=== PATIENT | female | born 1945 | race American Indian/Alaskan Native ===

== ENCOUNTER 2017-10-06 16:01 | Emergency (ER) | payer BC, MEDICARE ==
[2017-10-06 16:01] VITALS: BMI 29.0
--- NOTE | 2017-10-06 16:24 | ED PDOC ---
Arrival/HPI - General Chief Complaint: Upper Extremity Problem/Injury Time Seen by Provider: 10/06/17 16:19 Historian: Patient EM Caveat: Acuity of Condition - History of Present Illness Narrative History of Present Illness (Text): 10/06/17 16:20 Pt is a 72 yr old female who presents to the ED for right arm injury while shopping at [employer] s/p slip and fall on wet surface one hour earlier. Pt and spouse describe landing on her right forearm but denies head injury, LOC, CARTER, nausea, vomiting, or change in vision. Describes pain as an ache that is better with rest and worse on active movement. No other complaints at this time. Time/Duration: Prior to Arrival Symptom Onset: Sudden Symptom Course: Improving Quality: Aching Severity Level: 3 Activities at Onset: Light Context: Other (shopping) Past Medical History - Provider Review Nursing Documentation Reviewed: Yes - Travel History Have you recently traveled outside [place] w/in the past 3 mons?: No - Infectious Disease Hx of Infectious Diseases: None - Reproductive Menopause: Yes - Cardiac Hx Hypertension: Yes - Endocrine/Metabolic Hx Hypothyroidism: Yes - Psychiatric Hx Substance Use: No - Surgical History Other/Comment: leg surgery 2000 - Anesthesia Hx Anesthesia: Yes - Suicidal Assessment Feels Threatened In Home Enviroment: No Family/Social History - Physician Review Nursing Documentation Reviewed: Yes Family/Social History: Unknown Family HX Smoking Status: Never Smoked Hx Alcohol Use: No Hx Substance Use: No Allergies/Home Meds Allergies/Adverse Reactions: Allergies No Known Allergies Allergy (Verified 09/30/15 13:00) Home Medications: Home Meds Medication Instructions Recorded Confirmed Losartan Potassium and 100 mg PO DAILY 08/25/13 09/30/15 Hydrochlorothiazide 25 Review of Systems - Physician Review All systems were reviewed & negative as marked: Yes - Review of Systems Systems not reviewed;Unavailable: Acuity of Condition Constitutional: Normal Eyes: Normal. absent: Vision Changes, Eye Pain ENT: Normal. absent: Epistaxis Respiratory: Normal. absent: SOB Cardiovascular: Normal. absent: Chest Pain Gastrointestinal: Normal. absent: Abdominal Pain Genitourinary Female: Normal Musculoskeletal: Normal, Other (right arm pain) Skin: Normal Neurological: Normal. absent: Headache, Dizziness, Gait Changes Endocrine: Normal. absent: Diaphoresis Hemo/Lymphatic: Normal Psychiatric: Normal Physical Exam Vital Signs Reviewed: Yes Vital Signs Temp Pulse Resp BP Pulse Ox 10/06/17 16:10 98.2 F 78 18 108/69 97 Temperature: Afebrile Blood Pressure: Normal Pulse: Regular Respiratory Rate: Normal Appearance: Positive for: Well-Appearing, Non-Toxic, Comfortable Pain Distress: Mild Mental Status: Positive for: Alert and Oriented X 3 - Systems Exam Head: Present: Atraumatic, Normocephalic Respiratory/Chest: Present: Clear to Auscultation, Good Air Exchange. No: Respiratory Distress, Accessory Muscle Use Cardiovascular: Present: Regular Rate and Rhythm, Normal S1, S2. No: Murmurs Abdomen: No: Tenderness, Distention, Peritoneal Signs Back: Present: Normal Inspection. No: Midline Tenderness, Paraspinal Tenderness Upper Extremity: Present: Normal Inspection, NORMAL PULSES, Tenderness (right forearm midshft), Neurovascularly Intact, Capillary Refill < 2s. No: Cyanosis, Edema, Swelling, Erythema, Temperature Abnormalties, Deformity Lower Extremity: Present: Normal Inspection, NORMAL PULSES, Normal ROM. No: Edema, Tenderness Neurological: Present: GCS=15, CN II-XII Intact, Speech Normal, Motor Func Grossly Intact, Normal Cerebellar Funct, Gait Normal Skin: Present: Warm, Dry, Normal Color. No: Rashes Psychiatric: Present: Alert, Oriented x 3, Normal Insight, Normal Concentration Medical Decision Making ED Course and Treatment: 10/06/17 16:23 Impression Pt is a 72 yr old female who presents to the ED for right arm injury at [employer] s/p fall while shopping one hour earlier On exam. 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 Ulcer: No History Surgical Site Infection Following: None - Disposition Have Diagnosis and Disposition been Completed?: Yes Diagnosis: Injury of right lower arm, Contusion of arm, right Disposition: HOME/ ROUTINE Disposition Time: 17:17 Patient Plan: Discharge Condition: GOOD Additional Instructions: BERENICE VARGAS, thank you for letting us take care of you today. Your provider was Apolinar Baker MD and SILAS Cueva, and you were treated for a RIGHT ARM INJURY DUE TO A FALL. The emergency medical care you received today was directed at your acute symptoms. If you were prescribed any medication, please fill it and take as directed. It may take several days for your symptoms to resolve. Return to the Emergency Department if your symptoms worsen, do not improve, or if you have any other problems. PLEASE FOLLOW UP WITH YOUR PRIMARY CARE DOCTOR IN 2 DAYS. TAKE IBUPROFEN FOR PAIN AND INFLAMMATION; USE ICE OR COLD PACKS ON THE ARM, 15 MINUTES ON AND 15 MINUTES OFF, REST AND ELEVATE. Please contact your doctor or call one of the physicians/clinics you have been referred to that are listed on the Patient Visit Information form that is included in your discharge packet. Bring any paperwork you were given at discharge with you along with any medications you are taking to your follow up visit. Our treatment cannot replace ongoing medical care by a primary care provider outside of the emergency department. Thank you for allowing the [facility] team to be part of your care today. If you had an X-Ray or CT scan: A Radiologist will review the ED reading if any change in treatment is needed we will contact you. Prescriptions: Ibuprofen [Motrin Tab] 400 mg PO Q6 #20 tab Forms: [employer] (Finnish)
[2017-10-06 16:43] VITALS: BP 108/69; PULSE 78; RESP 18; TEMP 98.2; O2SAT 97
--- NOTE | 2017-10-07 10:50 | RAD ---
PROCEDURE: Radiographs of the Right Forearm HISTORY: Injury COMPARISON: None available. TECHNIQUE: Frontal and lateral views obtained. FINDINGS: BONES: No fracture or destructive lesion. 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 There also degenerative changes PIP joint thumb OTHER FINDINGS: None. IMPRESSION: No evidence acute displaced fracture nor dislocation. Mild degenerative osteoarthritis as described. If symptoms persist or occult fracture suspected clinically recommend repeat radiographs in 5-10 days as most fractures should become radiographically evident in this timeframe.
== END 2017-10-06 17:50 | disposition home or self-care (01) ==
LOC: ED 16:01
DX: S40.021A Contusion of right upper arm, initial encounter (principal); W01.0XXA Fall on same level from slipping, tripping and stumbling without subsequent striking against object, initial encounter; Y92.512 Supermarket, store or market as the place of occurrence of the external cause; I10 Essential (primary) hypertension; E03.9 Hypothyroidism, unspecified